=== PATIENT | female | born 1995 | race Hispanic/Latino ===

== ENCOUNTER 2018-07-30 11:18 | Emergency (ER) | payer OTHER ==
[2018-07-30] MEDS ORDERED: CLINDAMYCIN HCL 150 MG CAP ONE (11:48)
[2018-07-30] MEDS ORDERED: LIDOCAINE 2%-EPI 1:200,000 20 ML VIAL IJ ONE (11:49)
[2018-07-30] MEDS ORDERED: HYDROCODONE/ACETAMINOPHEN 10/325 MG TAB ONE (11:50)
== END 2018-07-30 12:35 | disposition home or self-care (01) ==
LOC: EDH 11:18
DX: L05.01 Pilonidal cyst with abscess (principal)
CPT/HCPCS: 10081; 99284; J3490

== ENCOUNTER 2022-11-10 06:37 | Day surgery (SDC) | payer MEDICAID, SELFPAY ==
[2022-11-06 13:57] LABS: BASOPHILS % (AUTO) 0.6 % (0.0-5.0); EOSINOPHILS % (AUTO) 1.7 % (0.0-8.0); HEMATOCRIT 44.6 % (36-48); LYMPHOCYTES % (AUTO) 16.1 % (21.0-51.0); MEAN CORPUSCULAR HEMOGLOBIN 28.3 pg (27.0-33.0); MEAN CORPUSCULAR HGB CONC 32.7 g/dL (32.0-36.0); MEAN CORPUSCULAR VOLUME 86.6 fL (79-99); MONOCYTES % (AUTO) 6.5 % (3.0-13.0); NEUTROPHILS % (AUTO) 74.7 % (40.0-77.0); PLATELET COUNT (AUTO) 341 K/uL (130-400); RED BLOOD CELL COUNT(AUTO) 5.15 MIL/uL (4.00-5.50); RED CELL DISTRIBUTION WIDTH 14.6 % (11.0-15.5); WHITE BLOOD COUNT (AUTO) 10.2 K/uL (4.8-10.8)
[2022-11-06 14:04] LABS: CREATININE 0.7 mg/dL (0.5-1.5); POTASSIUM 4.3 mmol/L (3.5-5.1)
[2022-11-06 14:34] VITALS: BP 118/62
[2022-11-10] VITALS (16 sets, daily range): BP systolic 92–132; BP diastolic 40–72
[~2022-11-10] VITALS: Ht 162.6 cm; Wt 96.3 kg
[~2022-11-10 06:37] MED LIST: 0.9%NACL 1000ML 1,000 ML IV SCH; BENZ1TAB83 PO; CEFAZOLIN SODIUM 1 GM VIAL IVPB PRN; DOXY100C5 PO; FOLI0.8C PO; IBUP-2070 PO; SERT-440 PO; TRIF2TAB PO; VITAMIN B12 PO
[2022-11-10] MEDS ORDERED: CEFAZOLIN SODIUM 2 GM VIAL ONE (07:08)
[2022-11-10] MEDS ORDERED: LACTATED RINGERS 1000ML 1,000 ML IV ONE (07:08)
[2022-11-10] MEDS ORDERED: LIDOCAINE PF 100MG/5ML (2%) SYRINGE 5ML ONE (07:21)
[2022-11-10] MEDS ORDERED: MIDAZOLAM HCL 1 MG/ML 2ML VIAL ONE (07:22)
[2022-11-10] MEDS ORDERED: ROCURONIUM 10MG/1ML SYR 10 MG/ML ML ONE (07:22)
[2022-11-10] MEDS ORDERED: FENTANYL CITRATE PF 50 MCG/1 ML 2ML VIAL ONE (07:22)
[2022-11-10] MEDS ORDERED: PROPOFOL 10 MG/ML 20ML VIAL IV ONE (07:22)
[2022-11-10] MEDS ORDERED: PHENYLEPHRINE HCL 10 MG/ML 1ML VIAL IV ONE (07:24)
[2022-11-10] MEDS ORDERED: GLYCOPYRROLATE 1 MG/5 ML SYRINGE ONE (07:24)
[2022-11-10] MEDS ORDERED: NEOSTIGMINE 5MG/5ML SYR IV ONE (07:24)
[2022-11-10] MEDS ORDERED: ONDANSETRON 4MG INJ ONE (07:57)
[2022-11-10] MEDS ORDERED: DEXAMETHASONE SOD PHOSPHATE 4 MG/ML 1ML VIAL ONE (07:57)
[2022-11-10] MEDS ORDERED: BUPIVACAINE/PF 0.25% 30ML VIAL IJ ONE (07:58)
[2022-11-10] MEDS ORDERED: CEFAZOLIN SODIUM 2 GM VIAL IVPB ONE (08:00)
[2022-11-10] MEDS ORDERED: BUPIVACAINE/PF 0.5% 50ML 5 MG/ML VIAL ONE (08:04)
[2022-11-10] MEDS ORDERED: KETOROLAC 30MG VIAL (30MG/ML) ONE (08:11)
[2022-11-10] MEDS ORDERED: BUPIVACAINE/PF 0.5% 30ML VIAL INJ ONE (08:30)
== END 2022-11-10 10:20 | disposition home or self-care (01) ==
LOC: DAH 06:37
PROVIDERS: ATTEND Surgery
DX: L72.3 Sebaceous cyst (principal); Z20.822 Contact with and (suspected) exposure to COVID-19; L73.2 Hidradenitis suppurativa; L72.0 Epidermal cyst; F32.A Depression, unspecified; F84.0 Autistic disorder; Z83.3 Family history of diabetes mellitus
CPT/HCPCS: 87426; 36415; 80048; 85025; 84703; 11426; 81025; A6260; J1100; A4663; J7120 ×2; A4452; J3010; J3490 ×3; J2710; J2250; J2405; J1885; J2370; J0690 ×2; A4215; A4223; A4222; A4221; S0020 ×2; J2001; J2704